=== PATIENT | female | born 1945 | race Caucasian/White ===

== ENCOUNTER 2017-11-04 12:40 | Emergency (ER) | payer MEDICARE ==
[~2017-11-04] VITALS: Ht 157.5 cm; Wt 50.0 kg
[~2017-11-04 12:40] MED LIST: AMLO10TA2 PO; ASPI81CH6 PO; ATOR10TA15 PO; Albuterol-Ipratropium Neb NEB; BENA20TA PO; BENZ100 PO; CELE1CAP8 PO; GLIM4TAB PO; INSU1.2I SQ; LOSA50TA PO; METF500T PO; METO50TA PO; NEBULIZER1 MI1; NP T30TA PO; OXYC1TAB36 PO; OXYGENDME NAS.CANULA; PRED50 PO; TRAM50TA PO; VITA1000 PO
[2017-11-04 13:14] VITALS: BP 152/68; PULSE 78; RESP 20; TEMP 97.8; O2SAT 99
--- NOTE | 2017-11-04 13:59 | RADRPT ---
EXAM DATE/TIME: 11/04/2017 13:34 [facility] COMPARISON: CT ABDOMEN & PELVIS W/O CONTRAST, July 07, 2017, 14:37. CHEST SINGLE AP, July 08, 2017, 9:36 . INDICATIONS : Shortness of breath. MEDICAL HISTORY : Lung cancer. SURGICAL HISTORY : None. ENCOUNTER: Initial ACUITY: 1 day PAIN SCORE: 5/10 LOCATION: Bilateral chest FINDINGS: Small left pleural effusion with associated left lower lobe airspace disease. Cardio mediastinal cont ours are within normal limits. Bony thorax is intact. CONCLUSION: 1. Small left pleural effusion with associated left lower lobe airspace disease. Raleigh Mares MD on November 04, 2017 at 13:52 Board Certified Radiologist. This report was verified electronically.
[2017-11-04 14:22] LABS: AUTOMATED NEUTROPHIL # 6.6 TH/MM3 (1.8-7.7); BASOPHIL % 0.3 % (0.0-2.0); EOSINOPHIL # 0.1 TH/MM3 (0-0.4); EOSINOPHIL % 1.1 % (0.0-4.0); HEMATOCRIT 40.4 % (35.0-46.0); HEMOGLOBIN 14.4 GM/DL (11.6-15.3); LYMPH % 9.1 % (9.0-44.0); LYMPHOCYTE # 0.7 TH/MM3 (1.0-4.8); MEAN CELL VOLUME 86.3 FL (80.0-100.0); MEAN CORPUSCULAR HEMOGLOBIN 30.7 PG (27.0-34.0); MEAN CORPUSCULAR HGB CONC 35.6 % (32.0-36.0); MEAN PLATELET VOLUME 9.3 FL (7.0-11.0); MONO % 8.4 % (0.0-8.0); MONOCYTE # 0.7 TH/MM3 (0-0.9); NEUT % 81.1 % (16.0-70.0); PLATELET COUNT 197 TH/MM3 (150-450); RED BLOOD COUNT 4.68 MIL/MM3 (4.00-5.30); RED CELL DISTRIBUTION WIDTH 16.9 % (11.6-17.2); WHITE BLOOD COUNT 8.1 TH/MM3 (4.0-11.0)
[2017-11-04 14:42] LABS: BICARBONATE 27.6 MEQ/L (21.0-32.0); CALCIUM 8.6 MG/DL (8.5-10.1); CREATININE 0.76 MG/DL (0.50-1.00)
--- NOTE | 2017-11-04 15:38 | PD ---
HPI Chief Complaint: Respiratory Symptoms Time Seen by Provider: 15:37 Travel History International Travel<30 days: No Contact w/Intl Traveler<30days: No Traveled to known affect area: No History of Present Illness HPI 72-year-old female with diabetes, stage IV lung cancer on daily oral chemotherapy, presents emergency department for evaluation of weakness, shortness of breath worsening over the last 3-4 days. Patient denies any fever or chills. States that her heart feels like it is racing. Denies any significant pain except for with deep inspiration more on the right lower side. She has had no nausea or vomiting. Family she requested head CT to evaluate for brain metastases. Patient has had no focal deficits or weakness. She has no other symptoms to report. PFSH Past Medical History Arthritis: Yes Depression: Yes High Cholesterol: Yes Chemotherapy: Yes (ORAL) Diabetes: Yes Hypertension: Yes Thyroid Disease: Yes Triglycerides - High: Yes Past Surgical History Oral Surgery: Yes (TONSILLECTOMY) Tonsillectomy: Yes Social History Alcohol Use: No Tobacco Use: No Substance Use: No Allergies-Medications (Allergen,Severity, Reaction): Coded Allergies: Iodinated Contrast- Oral and IV Dye (Verified Allergy, Intermediate, ) Reported Meds & Prescriptions Reported Meds & Active Scripts Active Zithromax Z-Aston (Azithromycin) 250 Mg Dspk 250 Mg PO DIRECTED 500 MG (2 tabs) day 1, then 1 tab days 2-5. Duoneb (Ipratropium-Albuterol Neb) 0.5-2.5 Mg/3 Ml Neb 1 Nebule INH Q6HR NEB Oxygen (O2) Device Liter MICHELLE.CANULA CONTINUOUS Oxygen Concentrator Portable Gaseous 4 L/min via Nasal Canula Continuous For 99 months Reported Doxycycline Hyclate 100 Mg Cap 100 Mg PO BID 14 Days Tarceva (Erlotinib) 150 Mg Tab 150 Mg PO DAILY Multiple Vitamin 1 Tab 1 Tab PO DAILY D 5000 (Cholecalciferol) 5,000 Unit Tab 5,000 Units PO DAILY Vitamin B-12 (Cyanocobalamin) Unknown Strength Tab 1 Tab PO DAILY Colace (Docusate Sodium) 100 Mg Capsule 100 Mg PO DAILY PRN Tomiley Solostar Pen Inj (Insulin Glargine) 300 Unit/Ml Pen SQ DAILY PER SLIDING SCALE Aspirin Low Dose (Aspirin) 81 Mg Chew 81 Mg PO DAILY Glimepiride 4 Mg Tab 4 Mg PO DAILY Atorvastatin (Atorvastatin Calcium) 10 Mg Tab 10 Mg PO HS Amlodipine (Amlodipine Besylate) 10 Mg Tab 10 Mg PO DAILY Metoprolol Tartrate 50 Mg Tab 50 Mg PO DAILY Hunting [employer] Fishing Guide Thyroid (Thyroid) 30 Mg Tab 30 Mg PO DAILY Review of Systems Except as stated in HPI: all other systems reviewed are Neg Physical Exam Narrative GENERAL: Well-nourished elderly female patient, lying in bed in no acute distress. SKIN: Focused skin assessment warm/dry. HEAD: Atraumatic. Normocephalic. EYES: Pupils equal and round. No scleral icterus. No injection or drainage. ENT: No nasal bleeding or discharge. Mucous membranes pink and moist. NECK: Trachea midline. No JVD. CARDIOVASCULAR: Regular rate and rhythm. No murmur appreciated. RESPIRATORY: No accessory muscle use. Diminished bilateral bases, otherwise clear to auscultation. Breath sounds equal bilaterally. GASTROINTESTINAL: Abdomen soft, non-tender, nondistended. Hepatic and splenic margins not palpable. MUSCULOSKELETAL: No obvious deformities. No clubbing. No cyanosis. No edema. NEUROLOGICAL: Awake and alert. No obvious cranial nerve deficits. Motor grossly within normal limits. Normal speech. PSYCHIATRIC: Appropriate mood and affect; insight and judgment normal. Data Data Last Documented VS Vital Signs Date Time Temp Pulse Resp B/P (MAP) Pulse Ox O2 Delivery O2 Flow Rate FiO2 11/04/17 16:22 61 18 Room Air 11/04/17 16:22 98.0 160/70 (100) 96 Orders Orders Complete Blood Count With Diff (11/04/17 13:15) Basic Metabolic Panel (Bmp) (11/04/17 13:15) Chest, Pa & Lat (11/04/17 ) Electrocardiogram (11/04/17 ) Ckmb (Isoenzyme) Profile (11/04/17 15:50) Troponin I (11/04/17 15:50) Ct Brain W/O Iv Contrast(Rout) (11/04/17 ) Ventilation & Perfusion Scan (11/04/17 ) Sodium Chlor 0.9% 1000 Ml Inj (Ns 1000 M (11/04/17 16:30) Ed Discharge Order (11/04/17 18:02) Albuterol-Ipratropium Neb (Duoneb Neb) (11/04/17 18:30) Labs Laboratory Tests Test 11/04/17 13:50 White Blood Count 8.1 TH/MM3 Red Blood Count 4.68 MIL/MM3 Hemoglobin 14.4 GM/DL Hematocrit 40.4 % Mean Corpuscular Volume 86.3 FL Mean Corpuscular Hemoglobin 30.7 PG Mean Corpuscular Hemoglobin Concent 35.6 % Red Cell Distribution Width 16.9 % Platelet Count 197 TH/MM3 Mean Platelet Volume 9.3 FL Neutrophils (%) (Auto) 81.1 % Lymphocytes (%) (Auto) 9.1 % Monocytes (%) (Auto) 8.4 % Eosinophils (%) (Auto) 1.1 % Basophils (%) (Auto) 0.3 % Neutrophils # (Auto) 6.6 TH/MM3 Lymphocytes # (Auto) 0.7 TH/MM3 Monocytes # (Auto) 0.7 TH/MM3 Eosinophils # (Auto) 0.1 TH/MM3 Basophils # (Auto) 0.0 TH/MM3 CBC Comment DIFF FINAL Differential Comment Blood Urea Nitrogen 21 MG/DL Creatinine 0.76 MG/DL Random Glucose 136 MG/DL Calcium Level 8.6 MG/DL Sodium Level 140 MEQ/L Potassium Level 3.5 MEQ/L Chloride Level 105 MEQ/L Carbon Dioxide Level 27.6 MEQ/L Anion Gap 7 MEQ/L Estimat Glomerular Filtration Rate 75 ML/MIN Total Creatine Kinase 48 U/L Troponin I LESS THAN 0.02 NG/ML MDM Medical Decision Making Medical Screen Exam Complete: Yes Emergency Medical Condition: Yes Medical Record Reviewed: Yes Differential Diagnosis Pneumonia versus metastatic disease versus effusion versus PE Narrative Course 72-year-old female presents to the emergency department for evaluation of shortness of breath, weakness, and heart palpitations worsening over last 3-4 days. Patient appears without distress. Her vital signs are stable. Laboratory Tests Test 11/04/17 13:50 White Blood Count 8.1 TH/MM3 Red Blood Count 4.68 MIL/MM3 Hemoglobin 14.4 GM/DL Hematocrit 40.4 % Mean Corpuscular Volume 86.3 FL Mean Corpuscular Hemoglobin 30.7 PG Mean Corpuscular Hemoglobin Concent 35.6 % Red Cell Distribution Width 16.9 % Platelet Count 197 TH/MM3 Mean Platelet Volume 9.3 FL Neutrophils (%) (Auto) 81.1 % Lymphocytes (%) (Auto) 9.1 % Monocytes (%) (Auto) 8.4 % Eosinophils (%) (Auto) 1.1 % Basophils (%) (Auto) 0.3 % Neutrophils # (Auto) 6.6 TH/MM3 Lymphocytes # (Auto) 0.7 TH/MM3 Monocytes # (Auto) 0.7 TH/MM3 Eosinophils # (Auto) 0.1 TH/MM3 Basophils # (Auto) 0.0 TH/MM3 CBC Comment DIFF FINAL Differential Comment Blood Urea Nitrogen 21 MG/DL Creatinine 0.76 MG/DL Random Glucose 136 MG/DL Calcium Level 8.6 MG/DL Sodium Level 140 MEQ/L Potassium Level 3.5 MEQ/L Chloride Level 105 MEQ/L Carbon Dioxide Level 27.6 MEQ/L Anion Gap 7 MEQ/L Estimat Glomerular Filtration Rate 75 ML/MIN Total Creatine Kinase 48 U/L Troponin I LESS THAN 0.02 NG/ML I discussed the patient my attending physician who is also assess her. We'll move forward with the VQ scan for further evaluation of possible PE as patient is allergic to contrast dye. Last Impressions Lung Scan-VQ Nuclear Medicine 11/04/17 0000 Signed Impressions: Service Date/Time: October 16:25 - CONCLUSION: 1. There is a left-sided pleural effusion is seen on the chest x-ray. This causes diminished transmission of tracer activity over the left hemithorax. 2. However, no segmental or sub-segmental defects are seen to suggest a pulmonary embolus. This is a low probability for PE. David Aly MD Head CT 11/04/17 Signed Impressions: Service Date/Time: October 16:22 - CONCLUSION: Normal examination for a patient of this age. David Aly MD Chest X-Ray 11/04/17 0000 Signed Impressions: Service Date/Time: October 13:34 - CONCLUSION: 1. Small left pleural effusion with associated left lower lobe airspace disease. Raleigh Mares MD Findings have been reviewed and discussed with my attending physician. Patient be started on oral antibiotic and provided DuoNeb prescription. She is advised to follow-up with a primary care provider and return immediately with any acute worsening of symptoms. Plan is discussed with the family at bedside in the patient. They are in agreement with this plan of care. Diagnosis Primary Impression: Pleural effusion on left Additional Impression: Non-small cell lung cancer (NSCLC) Qualified Codes: C34.90 - Malignant neoplasm of unspecified part of unspecified bronchus or lung Referrals: Primary Care Physician Patient Instructions: General Instructions, Pleural Effusion (ED) Additional Instructions: Follow-up with your primary care provider Return immediately with any acute worsening of symptoms Med/Other Pt SpecificInfo: Prescription(s) given Scripts Albuterol 18 GM Inh (Ventolin Hfa 18 GM Inh) 90 Mcg/Act Aer 2 PUFF INH Q4H Y for SHORTNESS OF BREATH, #1 INHALER 0 Refills Prov: Marion Tee 11/04/17 Azithromycin (Zithromax Z-Aston) 250 Mg Dspk 250 MG PO DIRECTED for Infection, #1 DSPK 0 Refills 500 MG (2 tabs) day 1, then 1 tab days 2-5. Prov: Marion Tee 11/04/17 Ipratropium-Albuterol Neb (Duoneb) 0.5-2.5 Mg/3 Ml Neb 1 NEBULE INH Q6HR NEB for Breathing Treatment, #120 NEBULE 0 Refills Prov: Marion Tee 11/04/17 Disposition: 01 DISCHARGE HOME Condition: Stable Marion Tee Nov 04, 2017 15:38
--- NOTE | 2017-11-04 16:10 | PD ---
Physical Exam Narrative I, Dr. Bradford, have reviewed the advance practice practitioner's documentation and am in agreement, met with the patient face to face, made the diagnosis, and the medical decision making was done by me. *My assessment and Findings: Patient is a 72 year old female with history of lung cancer, who comes in complaining of SOB with palpitations this morning. She says she has been feeling weak and tired for the past 3 days. She takes oral chemo daily. She denies fever or chills. Exam shows heart is RRR, lungs CTA. Data Data Last Documented VS Orders Orders Complete Blood Count With Diff (11/04/17 13:15) Basic Metabolic Panel (Bmp) (11/04/17 13:15) Chest, Pa & Lat (11/04/17 ) Electrocardiogram (11/04/17 ) Ckmb (Isoenzyme) Profile (11/04/17 15:50) Troponin I (11/04/17 15:50) Ct Brain W/O Iv Contrast(Rout) (11/04/17 ) Ventilation & Perfusion Scan (11/04/17 ) Sodium Chlor 0.9% 1000 Ml Inj (Ns 1000 M (11/04/17 16:30) Ed Discharge Order (11/04/17 18:02) Albuterol-Ipratropium Neb (Duoneb Neb) (11/04/17 18:30) Labs Laboratory Tests Test 11/04/17 13:50 White Blood Count 8.1 TH/MM3 Red Blood Count 4.68 MIL/MM3 Hemoglobin 14.4 GM/DL Hematocrit 40.4 % Mean Corpuscular Volume 86.3 FL Mean Corpuscular Hemoglobin 30.7 PG Mean Corpuscular Hemoglobin Concent 35.6 % Red Cell Distribution Width 16.9 % Platelet Count 197 TH/MM3 Mean Platelet Volume 9.3 FL Neutrophils (%) (Auto) 81.1 % Lymphocytes (%) (Auto) 9.1 % Monocytes (%) (Auto) 8.4 % Eosinophils (%) (Auto) 1.1 % Basophils (%) (Auto) 0.3 % Neutrophils # (Auto) 6.6 TH/MM3 Lymphocytes # (Auto) 0.7 TH/MM3 Monocytes # (Auto) 0.7 TH/MM3 Eosinophils # (Auto) 0.1 TH/MM3 Basophils # (Auto) 0.0 TH/MM3 CBC Comment DIFF FINAL Differential Comment Blood Urea Nitrogen 21 MG/DL Creatinine 0.76 MG/DL Random Glucose 136 MG/DL Calcium Level 8.6 MG/DL Sodium Level 140 MEQ/L Potassium Level 3.5 MEQ/L Chloride Level 105 MEQ/L Carbon Dioxide Level 27.6 MEQ/L Anion Gap 7 MEQ/L Estimat Glomerular Filtration Rate 75 ML/MIN Total Creatine Kinase 48 U/L Troponin I LESS THAN 0.02 NG/ML MDM Supervised Visit with MATTHEW: Yes Narrative Course V/Q scan low probability for PE. Concern for possible airspace disease. Patient will be discharged with antibiotics and advised to follow up with her doctors. Advised to return at any time for any worsening symptoms. Scripts Albuterol 18 GM Inh (Ventolin Hfa 18 GM Inh) 90 Mcg/Act Aer 2 PUFF INH Q4H Y for SHORTNESS OF BREATH, #1 INHALER 0 Refills Prov: Marion Tee 11/04/17 Azithromycin (Zithromax Z-Aston) 250 Mg Dspk 250 MG PO DIRECTED for Infection, #1 DSPK 0 Refills 500 MG (2 tabs) day 1, then 1 tab days 2-5. Prov: Marion Tee 11/04/17 Ipratropium-Albuterol Neb (Duoneb) 0.5-2.5 Mg/3 Ml Neb 1 NEBULE INH Q6HR NEB for Breathing Treatment, #120 NEBULE 0 Refills Prov: Marion Tee 11/04/17 Trinh Bradford MD Nov 04, 2017 16:10
[2017-11-04 16:22] VITALS: BP 160/70; PULSE 61; RESP 18; TEMP 98; O2SAT 96
[2017-11-04] MEDS ORDERED: SODIUM CHLOR 0.9% 1000 ML INJ 1,000 ML IV ONE (16:30)
--- NOTE | 2017-11-04 16:36 | RADRPT ---
EXAM DATE/TIME: 11/04/2017 16:22 [facility] COMPARISON: No previous studies available for comparison. INDICATIONS : Patient complains of headache. RADIATION DOSE: 36.64 CTDIvol (mGy) MEDICAL HISTORY : Hypertension. Diabetes mellitus type 1. Carcinoma, lung. SURGICAL HISTORY : None. ENCOUNTER: Initial ACUITY: 1 day PAIN SCALE: 5/10 LOCATION: cranial TECHNIQUE: Multiple contiguous axial images were obtained of the head. Using automated exposure control and adj ustment of the mA and/or kV according to patient size, radiation dose was kept as low as reasonably a chievable to obtain optimal diagnostic quality images. DICOM format image data is available electro nically for review and comparison. FINDINGS: CEREBRUM: The ventricles are normal for age. No evidence of midline shift, mass lesion, hemorrhage or acute in farction. No extra-axial fluid collections are seen. POSTERIOR FOSSA: The cerebellum and brainstem are intact. The 4th ventricle is midline. The cerebellopontine angle i s unremarkable. EXTRACRANIAL: The visualized portion of the orbits is intact. SKULL: The calvaria is intact. No evidence of skull fracture. CONCLUSION: Normal examination for a patient of this age. David Aly MD on November 04, 2017 at 16:33 Board Certified Radiologist. This report was verified electronically.
[2017-11-04] MEDS ORDERED: VITA10002 PO (16:44)
[2017-11-04] MEDS ORDERED: COLA100C5 PO (16:44)
[2017-11-04 16:48] LABS: TROPONIN I LESS THAN 0.02 NG/ML (0.02-0.05)
[2017-11-04] MEDS ORDERED: DOXY100C PO (16:51)
[2017-11-04] MEDS ORDERED: VITA500015 PO (16:51)
[2017-11-04] MEDS ORDERED: TARC150T PO (16:51)
[2017-11-04] MEDS ORDERED: MULTTAB67 PO (16:51)
--- NOTE | 2017-11-04 17:36 | RADRPT ---
EXAM DATE/TIME: 11/04/2017 16:25 [facility] COMPARISON: CHEST PA & LAT, November 04, 2017, 13:34. INDICATIONS : Shortness of breath with generalized weakness for three days. DOSE: 8.7 mCi Tc99m MAA IV 0.40 mCi Tc99m DTPA aerosol MEDICAL HISTORY : Carcinoma, lung. Hypertension. Diabetes mellitus type 2. SURGICAL HISTORY : Tonsillectomy. ENCOUNTER: Initial ACUITY: 3 days PAIN SCALE: 0/10 LOCATION: chest TECHNIQUE: Following five minutes of tidal breathing of DTPA aerosol, planar images of the lungs were performed in eight projections. The patient was then injected with MAA, and eight-view perfusion scan was perf ormed. FINDINGS: There is a homogeneous pattern of aerosol delivery to the periphery of both lungs. There is some dimi nished activity over the left hemithorax attributed to the patient's left-sided pleural effusion. The perfusion lung scan demonstrates a homogenous pattern of uptake in both lungs. No segmental or s ubsegmental defects are seen. Diminished uptake over the left hemithorax attributed to patient's left pleural effusion. CONCLUSION: 1. There is a left-sided pleural effusion is seen on the chest x-ray. This causes diminished transmis farideh of tracer activity over the left hemithorax. 2. However, no segmental or sub-segmental defects are seen to suggest a pulmonary embolus. This is a low probability for PE. David Aly MD on November 04, 2017 at 17:32 Board Certified Radiologist. This report was verified electronically.
[2017-11-04] MEDS ORDERED: IPRASOL INH (18:06)
[2017-11-04] MEDS ORDERED: ZITHTAB PO (18:06)
[2017-11-04] MEDS ORDERED: VENTAER INH (18:29)
[2017-11-04] MEDS ORDERED: RESP: ALBUTEROL 2.5 MG/IPRATROPIUM 0.5 MG NEB (SCH) NEB ONE (18:30)
[2017-11-04 18:36] VITALS: BP 162/72
--- NOTE | 2017-11-05 00:02 | EKG ---
Date Performed: 11/04/2017 Time Performed: 14:04:25 PTAGE: 72 years EKG: Sinus rhythm POSSIBLE RIGHT VENTRICULAR CONDUCTION DELAY MODERATE T-WAVE ABNORMALITY, CONSIDER ANTERIOR ISCHEMIA ABNORMAL ECG PREVIOUS TRACING : 06/29/2017 15.07 Compared to prior tracing, anterior T wave changes may be normal variant DOCTOR: Holland Tate Interpretating Date/Time 11/05/2017 00:01:53
== END 2017-11-04 18:52 | disposition home or self-care (01) ==
LOC: NEPE 12:40
DX: J90 Pleural effusion, not elsewhere classified (principal); C34.90 Malignant neoplasm of unspecified part of unspecified bronchus or lung; R94.31 Abnormal electrocardiogram [ECG] [EKG]; E11.9 Type 2 diabetes mellitus without complications; I10 Essential (primary) hypertension; E07.9 Disorder of thyroid, unspecified; E78.2 Mixed hyperlipidemia; M19.90 Unspecified osteoarthritis, unspecified site; F32.9 Major depressive disorder, single episode, unspecified
CPT/HCPCS: 70450; 71046; 78582; 80048; 82550; 84484; 85025; 93005; 94664; 96360; 99285; A9540; A9567; J7030